=== PATIENT | male | born 1995 | race Caucasian/White ===

== ENCOUNTER 2017-09-20 14:11 | Emergency (ER) | payer BC ==
[~2017-09-20] VITALS: Ht 185.4 cm; Wt 77.1 kg
[~2017-09-20 14:11] MED LIST: FLUOXETINE 10MG10 MG PO; LORTAB 5/500 501 TAB PO
[2017-09-20] MEDS ORDERED: BACTRIM DS 8001 TA1 PO (14:29)
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
--- OUTSIDE RECORDS SUMMARY | 2017-09-20 14:41 | External Medical Summary Rpt | CCD ---
Author Author [employer] Organization [employer] Address Unknown Phone Unavailable Purpose Continuity of Care Document - through 2016
--- OUTSIDE RECORDS SUMMARY | 2017-09-20 14:41 | External Medical Summary Rpt | CCD ---
Author Author , INES Organization INES Address Unknown Phone [email or web address] Immunization Name Date Rout CVX Reac Dose Comm Prov Is Faci e tion ent ider Refu lity Give sed n Td 09-2 113 0.5 Hist [facility] No [facility] (jessica 9-20 mL oric 1 1 lt), 14 al Info P-Fr rmat ee ion - Sour ce Unsp ecif ied
--- OUTSIDE RECORDS SUMMARY | 2017-09-20 14:41 | External Medical Summary Rpt ---
Author Author INES Colón, [employer] Organization [employer] Address Unknown Phone Unavailable Results Opiates and Oxycodone(GC/MS),U Observa Value Referen Units Interpr Notes Date tion ce etation Range Oxycodo Negativ Cutoff= No No Test May 23 ne/Oxym e 100 informa informa include 2017 orph tion in tion in s 11:39 source source Oxycodo AM data data ne and [employer] honePer formed at: [facility] [id number] [place], [place] [id number]Lab Directo r: Maxi Espinoza MD, Phone: [phone] [employer] [place] No No No No May 23 griselda informa informa informa informa 2017 tion in tion in tion in tion in 11:39 source source source source AM data data data data Opiates Negativ Cutoff= No No Opiate May 23 e 100 informa informa test 2017 tion in tion in include 11:39 source source s AM data data Codeine , Morphin e, Hydromo rphone, Hydroco done. Drugs identified in Urine by Screen method Observa Value Referen Units Interpr Notes Date tion ce etation Range Positive urine drug screen samples are stored for 7 days. Contact the Lab if confirmation of positives is needed. Ampheta NEGATIV <1000 ng/mL No No May 23 mine E informa informa 2016 [Presen tion in tion in 11:39 ce] in source source AM Urine data data by Screen method Barbitura <200 ng/mL No No May 23 kar informati informati 2016 [Mass/vol on in on in 11:39 AM ume] in source source Urine by data data Screen method Benzodiaz 200 ng/mL ng/mL No No May 23 epines informati informati 2017 [Mass/vol on in on in 11:39 AM ume] in source source Serum or data data Plasma by Screen method Cocaine <300 ng/g No No May 23 [Mass/vol informati informati 2017 ume] in on in on in 11:39 AM Unspecifi source source ed data data specimen Methadone <300 ng/mL No No May 23 informati informati 2016 [Mass/vol on in on in 11:39 AM ume] in source source Unspecifi data data ed specimen Opiates <300 ng/mL No No May 23 [Mass/vol informati informati 2017 ume] in on in on in 11:39 AM Unspecifi source source ed data data specimen Phencycli <25 ng/mL No No May 23 dine informati informati 2016 [Mass/vol on in on in 11:39 AM ume] in source source Unspecifi data data ed specimen 11-Hydr NEGATIV <50 ng/mL No No May 23 oxy E informa informa 2017 delta-9 tion in tion in 11:39 source source AM tetrahy data data drocann abinol [Presen ce] in Unspeci fied specime n
--- OUTSIDE RECORDS SUMMARY | 2017-09-20 14:41 | External Medical Summary Rpt ---
[...] data ne and [employer] honePer formed at: [facility] [id number] [place], [place] [id number]Lab Directo r: Maxi Espinoza MD, Phone: [phone] [employer] [place] No No No No May [...]
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
--- OUTSIDE RECORDS SUMMARY | 2017-09-20 14:41 | External Medical Summary Rpt | CCD ---
Author Author , INES Organization INES Address Unknown Phone [email or web address] Immunization Name Date Rout CVX Reac Dose Comm Prov Is Faci e tion ent ider Refu lity Give sed n Td 09-2 113 0.5 Hist [facility] No [facility] (jessica 9-20 mL oric 1 1 lt), 14 al Info P-Fr rmat ee ion - Sour ce Unsp ecif ied
[2017-09-20 14:44] VITALS: BP 158/87
== END 2017-09-20 14:44 | disposition home or self-care (01) ==
LOC: ER 14:11
DX: T21.21XA Burn of second degree of chest wall, initial encounter (principal); X17.XXXA Contact with hot engines, machinery and tools, initial encounter; Y99.0 Civilian activity done for income or pay